=== PATIENT | female | born 1990 | race Caucasian/White ===

== ENCOUNTER 2017-12-15 11:04 | Emergency (ER) | payer OTHER ==
[~2017-12-15] VITALS: Ht 160 cm; Wt 72.6 kg
[2017-12-15 11:04] VITALS: BP 106/74
== END 2017-12-15 11:55 | disposition home or self-care (01) ==
LOC: ER 11:08
DX: M23.91 Unspecified internal derangement of right knee (principal); Z60.2 Problems related to living alone
CPT/HCPCS: A4606; Z7502; Z7610